=== PATIENT | male | born 1995 | race Caucasian/White ===

== ENCOUNTER 2019-06-05 15:57 | Inpatient (IN) | payer MEDICAID, OTHER ==
[~2019-06-05] VITALS: Ht 170.2 cm; Wt 57.7 kg
--- NOTE | 2019-06-05 16:04 | NUR ---
PT REPORTS USUALLY DRINKS 2 24 OUNCE BEERS DAILY, NO ETOH X 4 DAYS
[2019-06-05 16:27] LABS: BASOPHILS % (AUTO) 0.3 % (0-1); EOSINOPHILS % (AUTO) 0 % (0-6); HEMATOCRIT 47.7 % (42.0-52.0); HEMOGLOBIN 16.7 g/dl (14.0-17.9); LYMPHOCYTES # (AUTO) 1.5 X10'3 (1.1-4.8); LYMPHOCYTES % (AUTO) 13.2 % (21-51); MEAN CORPUSCULAR HEMOGLOBIN 36.2 PG (27.0-31.0); MEAN CORPUSCULAR HGB CONC 34.9 g/dL (33.0-36.5); MEAN CORPUSCULAR VOLUME 103.7 FL (78-98); MEAN PLATELET VOLUME 7.8 FL (7.4-10.4); MONOCYTES # (AUTO) 0.9 X10'3 (0-0.9); MONOCYTES % (AUTO) 7.4 % (2-12); NEUTROPHILS # (AUTO) 9.1 X10'3 (1.8-7.7); NEUTROPHILS % (AUTO) 79.1 % (42-75); PLATELET COUNT 219 X10'3 (140-440); RED CELL DISTRIBUTION WIDTH 13.7 % (11.5-14.5); WHITE BLOOD COUNT 11.5 X10'3 (4.5-11.0)
[2019-06-05 16:44] LABS: ALANINE AMINOTRANSFERASE 41 U/L (12-78); ALBUMIN 3.3 G/DL (3.4-5.0); ALBUMIN/GLOBULIN RATIO 1.1 (1.1-1.5); ALKALINE PHOSPHATASE 102 IU/L (46-116); ANION GAP 9 (8-16); ASPARTATE AMINO TRANSFERASE 38 U/L (10-37); BILIRUBIN,TOTAL 1.5 MG/DL (0.1-1.0); BLOOD UREA NITROGEN 13 MG/DL (7-18); BUN/CREATININE RATIO 11.1 (5.4-32.0); CALCIUM 7.9 MG/DL (8.5-10.1); CHLORIDE 100 MMOL/L (99-107); CREATININE 1.17 MG/DL (0.60-1.10); GLUCOSE 97 MG/DL (70-104); LIPASE 484 U/L (73-393); POTASSIUM 3.3 MMOL/L (3.5-5.1); SODIUM 140 MMOL/L (135-145); TOTAL PROTEIN 6.2 G/DL (6.4-8.2); eGFR 78 ML/MIN
[2019-06-05] MEDS ORDERED: normal saline 1000ML IV soln IVB ONE (16:55)
[2019-06-05] MEDS ORDERED: ketorolac tromethamine 15mg/ml inj. IV ONE (16:55)
[2019-06-05 17:18] LABS: CLARITY,URINE CLEAR (Clear); GLUCOSE, URINE 100 mg/dl (Neg); KETONES,URINE TRACE mg/dl (Neg); LEUKOCYTE ESTERASE ,URINE NEGATIVE (Neg); OCCULT BLOOD,URINE NEGATIVE (Neg); PROTEIN,URINE 100 mg/dl (Neg); UROBILINOGEN,URINE >=8.0 E.U/dL (0.2-1.0)
[2019-06-05 17:21] LABS: UA COLLECTION TYPE CLN CATCH MIDSTREAM
[2019-06-05 17:22] LABS: COLOR,URINE DARK YELLOW (Yellow)
[2019-06-05 17:24] LABS: NITRITES, URINE NEGATIVE (Neg)
[2019-06-05 17:27] LABS: BACTERIA,URINE NONE SEEN /HPF (Neg); HYALINE CASTS 0-3 /LPF (NEGATIVE); MUCUS STRANDS MODERATE /LPF (Neg); RBC,URINE 0-2 /HPF (0-2); SQUAMOUS EPITHELIAL CELL,UR FEW /LPF (FEW); TRANSITIONAL EPI CELLS,URINE FEW /HPF
[2019-06-05 17:28] LABS: CELLULAR CAST 0-4 /LPF (NEGATIVE)
[2019-06-05 17:32] LABS: URINE AMPHETAMINE SCREEN NEGATIVE (Neg); URINE BARBITUATE SCREEN NEGATIVE (Neg); URINE BENZODIAZEPINES SCREEN NEGATIVE (Neg); URINE CANNABINOID SCREEN POSITIVE (Neg); URINE COCAINE SCREEN NEGATIVE (Neg); URINE METHADONE SCREEN NEGATIVE (Neg); URINE OPIATE SCREEN NEGATIVE (Neg); URINE PHENCYCLIDINE SCREEN NEGATIVE (Neg)
[2019-06-05] MEDS ORDERED: NO HOME MEDS (19:08)
[2019-06-05] MEDS ORDERED: ondansetron/PF 4mg/2ml inj IV PRN (19:50)
[2019-06-05] MEDS ORDERED: morphine 2 MG/ML inj. syringe IV PRN ×2 (19:50)
[2019-06-05] MEDS ORDERED: mag hydrox/Alum hydrox/simeth 30ml oral suspension PO PRN (19:50)
[2019-06-05] MEDS ORDERED: haloperidol 5mg tablet PO PRN (19:50)
[2019-06-05] MEDS ORDERED: magnesium 2GM in 50ml NS 50 ML IV PRN (19:50)
[2019-06-05] MEDS ORDERED: haloperidol lactate 5mg/ml inj IM PRN (19:50)
[2019-06-05] MEDS ORDERED: magnesium 4gm in 100ml NS 100 ML IV PRN (19:50)
[2019-06-05] MEDS ORDERED: thiamine 100mg/ml 2ml inj. IV ONE (19:50)
[2019-06-05] MEDS ORDERED: LORazepam 2 mg/ml vial IV PRN (19:50)
[2019-06-05] MEDS ORDERED: dextrose 50%-water 50ml dispensing syringe IV PRN (19:50)
[2019-06-05] MEDS ORDERED: potassium Cl 20 mEq SR tablet PO PRN ×2 (19:50)
[2019-06-05] MEDS ORDERED: magnesium hydroxide 30ml (MOM) UD suspension PO PRN (19:50)
[2019-06-05] MEDS ORDERED: magnesium Cl slow-release 64mg tablet PO PRN (19:50)
[2019-06-05] MEDS ORDERED: potassium CL 10mEq/100ml bag 100 ML IV PRN ×2 (19:50)
[2019-06-05 20:01] LABS: ETHANOL < 0.010 GM/DL (0.0-0.010)
[2019-06-05] MEDS: normal saline 1000ml 1,000 ML IV SCH (20:19)
[2019-06-05] MEDS: K and/or MAG REPLACEMENT MC SCH (20:24)
[2019-06-05 21:15] VITALS: BP 121/82
--- NOTE | 2019-06-05 21:48 | NUR ---
Patient in room [facility] 348. I have received report from Asuncion HUITRON in the ER and had the opportunity to ask questions and assume patient care. Pt arrived on the unit at 2039 via wheelchair with his grandmother at bedside. He was able to transfer to the bed independently. VSS, no signs of distress, NS running at 100/mls/hr. Will continue to monitor.
[2019-06-05] MEDS ORDERED: diphenhydrAMINE 50 mg/ml inj IV PRN (22:10)
[2019-06-06] VITALS: BP 105/64
[2019-06-06] MEDS: normal saline 1000ml 1,000 ML IV SCH ×2 (04:18→15:48)
[2019-06-06] MEDS: LORazepam 1 MG tablet PO PRN ×3 (04:27→10:58)
--- NOTE | 2019-06-06 04:29 | NUR ---
Pt extremely anxious and agitated. Although I have checked hourly regarding needs/pain he did not ask for anxiety medications until he was extremely stressed. Grandmother is at bedside and reiterated teaching that he needs to verbalize his feelings and needs.
--- NOTE | 2019-06-06 06:23 | NUR ---
Problems reprioritized. Patient report given, questions answered & plan of care reviewed with Juan HUITRON.
[2019-06-06 07:11] VITALS: BP 125/86
[2019-06-06 07:26] LABS: BASOPHILS % (AUTO) 0.3 % (0-1); EOSINOPHILS % (AUTO) 0.3 % (0-6); HEMATOCRIT 39.6 % (42.0-52.0); HEMOGLOBIN 13.9 g/dl (14.0-17.9); LYMPHOCYTES # (AUTO) 1.9 X10'3 (1.1-4.8); LYMPHOCYTES % (AUTO) 22.8 % (21-51); MEAN CORPUSCULAR HEMOGLOBIN 36.9 PG (27.0-31.0); MEAN CORPUSCULAR HGB CONC 35.1 g/dL (33.0-36.5); MEAN PLATELET VOLUME 8.2 FL (7.4-10.4); MONOCYTES # (AUTO) 0.6 X10'3 (0-0.9); MONOCYTES % (AUTO) 7.5 % (2-12); NEUTROPHILS # (AUTO) 5.6 X10'3 (1.8-7.7); NEUTROPHILS % (AUTO) 69.1 % (42-75); PLATELET COUNT 180 X10'3 (140-440); RED BLOOD COUNT 3.77 X10'6 (4.70-6.10); RED CELL DISTRIBUTION WIDTH 13.7 % (11.5-14.5); WHITE BLOOD COUNT 8.1 X10'3 (4.5-11.0)
[2019-06-06 07:59] LABS: ALANINE AMINOTRANSFERASE 34 U/L (12-78); ALBUMIN 2.6 G/DL (3.4-5.0); ALKALINE PHOSPHATASE 76 IU/L (46-116); ANION GAP 10 (8-16); ASPARTATE AMINO TRANSFERASE 43 U/L (10-37); BLOOD UREA NITROGEN 16 MG/DL (7-18); BUN/CREATININE RATIO 15.1 (5.4-32.0); CALCIUM 7.3 MG/DL (8.5-10.1); CHLORIDE 106 MMOL/L (99-107); CREATININE 1.06 MG/DL (0.60-1.10); GLUCOSE 78 MG/DL (70-104); LIPASE 293 U/L (73-393); MAGNESIUM 1.3 MG/DL (1.5-2.4); POTASSIUM 3.1 MMOL/L (3.5-5.1); SODIUM 142 MMOL/L (135-145); TOTAL CARBON DIOXIDE 26.3 MMOL/L (24-32); TOTAL PROTEIN 5.1 G/DL (6.4-8.2); eGFR 87 ML/MIN
[2019-06-06] MEDS: K and/or MAG REPLACEMENT MC SCH (08:00)
[2019-06-06] MEDS ORDERED: HYDROcodone/acetaminophen 5mg/325mg tablet PO PRN ×2 (10:50)
[2019-06-06 11:06] VITALS: BP 112/88
--- NOTE | 2019-06-06 13:30 | NUR ---
patient down to ct
--- NOTE | 2019-06-06 13:42 | NUR ---
patient returned to room 348a.
[2019-06-06] MEDS ORDERED: THIA100T70 PO (15:27)
[2019-06-06] MEDS ORDERED: FOLI0.4T2 PO (15:27)
[2019-06-06] MEDS ORDERED: LORA-269 PO (16:00)
--- NOTE | 2019-06-06 16:33 | NUR ---
Discharge instructions discussed with patient and his parents by TOMY Strange. Patient verbalized understanding of dc instructions and new prescriptions. Patient dc'd with all personal belongings. Patient was alert and oriented in no apparent acute distress at dc.
--- NOTE | 2019-06-06 16:41 | NUR ---
Malnutrition consult: Pt and family seen at bedside. Pt reports UBW 130-145 lbs and reports wt loss over the last year resulting in recent wt of 120-125 lbs. Current scaled wt is 127 lbs and pt with scaled wt hx of 136 lbs in March 2017. If pt truly lost reported wt, this would be non-significant wt loss of 7-13% in one year. Pt with no decrease in muscle strength, edema, or visible fat/muscle wasting. Pt currently lacks a minimum of two criteria for malnutrition. Pt admitted with acute pancreatitis and provided with written and verbal pancreatitis nutrition therapy education with RD contact information. Pt now discharged. Will remain available. Addendum: 06/06/19 at [address] Amended: Links added.
== END 2019-06-06 16:33 | disposition home or self-care (01) | DRG 282 ==
LOC: ER 15:57 → ED HOLD 19:48 → EDBEDREQ 20:25 → SUR 3N 20:40
PROVIDERS: ADMIT Family Medicine; ATTEND Family Medicine
DX: K85.90 Acute pancreatitis without necrosis or infection, unspecified (principal); F10.10 Alcohol abuse, uncomplicated; F12.90 Cannabis use, unspecified, uncomplicated; R31.9 Hematuria, unspecified; Z88.0 Allergy status to penicillin
CPT/HCPCS: 36415; 74176; 76700; 80053; 80305; 80320; 81001; 82948; 83690; 83735; 84100; 85025; 86870; 86880; 86885; 86900; 86901; 87081; 87088; 96361; 96374; 99285; G0378; J1200; J1885; J2405; J3411; J7030

== ENCOUNTER 2024-05-16 12:23 | Day surgery (SDC) | payer MEDICAID ==
[2024-05-08 15:14] LABS: BASOPHILS % (AUTO) 0.6 % (0-1); EOSINOPHILS # (AUTO) 0.2 X10'3 (0-0.9); EOSINOPHILS % (AUTO) 2.5 % (0-6); LYMPHOCYTES # (AUTO) 2.8 X10'3 (1.1-4.8); LYMPHOCYTES % (AUTO) 31.6 % (21-51); MEAN CORPUSCULAR HEMOGLOBIN 31.7 PG (27.0-31.0); MEAN CORPUSCULAR HGB CONC 34.4 g/dL (33.0-36.5); MEAN CORPUSCULAR VOLUME 92.1 FL (78-98); MEAN PLATELET VOLUME 8.9 FL (7.4-10.4); MONOCYTES # (AUTO) 0.8 X10'3 (0-0.9); MONOCYTES % (AUTO) 8.6 % (2-12); NEUTROPHILS % (AUTO) 56.7 % (42-75); PRE OP HEMATOCRIT 48.2 % (42.0-52.0); PRE OP HEMOGLOBIN 16.6 g/dL (14.0-17.9); PRE OP PLATELET COUNT 252 X10'3 (140-440); PRE OP WHITE BLOOD COUNT 8.8 10'3 (4.8-10.8); RED BLOOD COUNT 5.24 X10'6 (4.70-6.10); RED CELL DISTRIBUTION WIDTH 13.6 % (11.5-14.5)
[2024-05-08 15:21] LABS: ALBUMIN 4.1 G/DL (3.4-5.0); ALBUMIN/GLOBULIN RATIO 1.1 (1.1-1.5); ALKALINE PHOSPHATASE 57 IU/L (46-116); BLOOD UREA NITROGEN 13 MG/DL (7-18); BUN/CREATININE RATIO 12.1 (10.0-20.0); CALCIUM 8.5 MG/DL (8.5-10.1); CHLORIDE 103 MMOL/L (99-107); CREATININE 1.07 MG/DL (0.60-1.10); PRE OP ALT 18 U/L (30-65); PRE OP ANION GAP 5 (8-16); PRE OP AST 11 U/L (10-37); PRE OP BILIRUB, TOTAL 0.3 MG/DL (0.0-1.0); PRE OP GLUCOSE 112 MG/DL (70-104); PRE OP POTASSIUM 3.9 MMOL/L (3.4-5.1); PRE OP SODIUM 139 MMOL/L (135-145); TOTAL CARBON DIOXIDE 30.7 MMOL/L (24-32); TOTAL PROTEIN 7.7 G/DL (6.4-8.2); eGFR 83 ML/MIN
[~2024-05-16] VITALS: Ht 175.3 cm; Wt 72.7 kg
[2024-05-16] VITALS (10 sets, daily range): BP systolic 120–127; BP diastolic 80–97; PULSE 77–102; RESP 11–27; TEMP 98.2; O2SAT 93–100
[~2024-05-16 12:23] MED LIST: DIVA-81 PO; MIRT-87 PO; QUET300T20 PO
[2024-05-16] MEDS: clindamycin-Cleocin 900mg/D5W 50 ML IV ONE (13:03)
[2024-05-16] MEDS: famotidine 20mg tablet PO ONE (13:03)
[2024-05-16] MEDS: ringers solution, lacted 1,000 ML IV SCH (13:03)
[2024-05-16] MEDS ORDERED: fentaNYL/PF 50MCG/1 ML 2ML syringe IV PRN ×2 (13:45)
[2024-05-16] MEDS ORDERED: labetalol 20mg/4ml (5mg/ml) syringe IV PRN (13:45)
[2024-05-16] MEDS ORDERED: HYDROmorphone/PF 0.2 MG/ML SYRINGE IV PRN (13:45)
[2024-05-16] MEDS ORDERED: ringers solution, lacted 1,000 ML IV SCH (13:45)
[2024-05-16] MEDS ORDERED: hydrALAZINE 20mg/ml inj. IV PRN (13:45)
[2024-05-16] MEDS ORDERED: LIDOcaine 1% (10mg/ml)w/preservative inj. 20ml MDV ONE (13:47)
[2024-05-16] MEDS ORDERED: BUPIVAcaine 2.5mg/ml inj 50ml vial (contains preservative) ONE (13:48)
[2024-05-16] MEDS ORDERED: LIDOcaine 1% 30ml preserv. free vial ONE (13:50)
[2024-05-16] MEDS ORDERED: sevoflurane 250ml liquid IH ONE (14:58)
[2024-05-16] MEDS ORDERED: fentaNYL /PF 50mcg/ml 5ml ampule ONE (15:01)
[2024-05-16] MEDS ORDERED: dexamethasone sod phosphate 4mg/ml inj. ONE (15:02)
[2024-05-16] MEDS ORDERED: propofol inj 20 ML IV ONE (15:02)
[2024-05-16] MEDS ORDERED: rocuronium 10mg/ml inj IV ONE (15:02)
[2024-05-16] MEDS ORDERED: MIDAZolam 1 MG/ML 5ML VIAL ONE (15:02)
[2024-05-16] MEDS ORDERED: LIDOcaine 2% (20mg/ml) 5ml vial ONE (15:02)
[2024-05-16] MEDS ORDERED: glycopyrrolate 0.2mg/ml inj ONE (15:03)
[2024-05-16] MEDS ORDERED: neostigmine methylsulfate 1 MG/ML 10ml vial ONE (15:03)
[2024-05-16] MEDS ORDERED: ondansetron/PF 4mg/2ml inj ONE (15:03)
[2024-05-16] MEDS: HYDROmorphone/PF 0.2 MG/ML SYRINGE IV PRN (16:51)
[2024-05-16] MEDS: ondansetron/PF 4mg/2ml inj IV PRN (17:06)
[2024-05-16] MEDS: proCHLORperazine 10 MG/2 ml inj IV ONE (17:19)
[2024-05-16] MEDS: oxyCODONE/APAP 5-325mg tablet PO PRN (17:20)
== END 2024-05-16 17:48 | disposition home or self-care (01) ==
LOC: PAS 12:23
PROVIDERS: ATTEND Surgery
DX: K40.20 Bilateral inguinal hernia, without obstruction or gangrene, not specified as recurrent (principal); K42.9 Umbilical hernia without obstruction or gangrene; F17.290 Nicotine dependence, other tobacco product, uncomplicated; I25.2 Old myocardial infarction; F41.9 Anxiety disorder, unspecified; F32.A Depression, unspecified; F17.210 Nicotine dependence, cigarettes, uncomplicated; Z98.890 Other specified postprocedural states; Z88.0 Allergy status to penicillin; Z88.8 Allergy status to other drugs, medicaments and biological substances; Z79.899 Other long term (current) drug therapy
CPT/HCPCS: 36415; 49591; 49650; 80053; 82948; 85025; C1781; J0780; J1100; J1171; J2003; J2250; J2405; J2704; J2710; J3010; J3490; J7030; J7120; S2900; Z7506; Z7508; Z7512; A4215; A4618